=== PATIENT | male | born 1995 | race Two or more races ===

== ENCOUNTER 2020-08-25 00:13 | Emergency (ER) | payer OTHER ==
[~2020-08-25] VITALS: Ht 177.8 cm; Wt 200.0 kg
--- NOTE | 2020-08-25 00:22 | PHYS DOC ---
General Adult HPI: HPI: ".. My right nut been hurting me bad.. since about 1600.. " " I also louise hurt here in my rt lower abdomen...".. Not Patient is a 25 year old male prisoner who presents with above hx and complaints of right lower abdomen pain and right testicle pain. Patient states he has not had problems with his right testicle or lower abdomen previously. Denies any trauma. Has been on lockdown isolation since June. Patient denies any strain or previous history of hernia. No history of kidney stones with him or family members. No recent travel or specific ill contacts. Patient reportedly had a normal stool in the last 24 hours. Patient denies any history of STDs. Patient has had over 100 sexual partners in his lifetime. No history of STDs in the past. Review of Systems: Review of Systems: Constitutional: Denies fever or chills Eyes: Denies change in visual acuity HENT: Denies nasal congestion or sore throat Respiratory: Denies cough or shortness of breath Cardiovascular: Denies chest pain or edema GI: Complains of lower right abdominal pain. Denies, nausea, vomiting, bloody stools or diarrhea : Complains of right testicle pain Musculoskeletal: Denies back pain or joint pain Integument: Denies rash Neurologic: Denies headache, focal weakness or sensory changes Endocrine: Denies polyuria or polydipsia Lymphatic: Denies swollen glands Psychiatric: Denies depression or anxiety Family History: Family History: Noncontributory to presentation Current Medications: Current Meds: See nursing for home meds Allergies: Allergies: No known drug allergies Physical Exam: PE: Constitutional: Moderate acute distress, non-toxic appearance. [] HENT: Normocephalic, atraumatic, bilateral external ears normal, oropharynx moist, no oral exudates, nose normal. [] Eyes: PERRLA, EOMI, conjunctiva normal, no discharge. [] Neck: Normal range of motion, no tenderness, supple, no stridor. [] Cardiovascular:Heart rate regular rhythm, no murmur [] Lungs & Thorax: Bilateral breath sounds equal apex on auscultation [] few scattered wheezes. Abdomen: Bowel sounds normal, soft, right lower quadrant tenderness, no masses, no pulsatile masses. Right testicle tender to palpation. Circumcised male. No discharge. Does appear to have bilateral hydroceles. Epididymis area on right testicle is tender to palpation. Skin: Warm, dry, no erythema, no rash. Tattoos Back: No tenderness, no CVA tenderness. [] Extremities: No tenderness, no cyanosis, no clubbing, ROM intact, no edema. No psoas. Neurologic: Alert and oriented X 3, normal motor function, normal sensory function, no focal deficits noted. [] Psychologic: Affect anxious judgement normal, mood normal. [] EKG: EKG: [] Radiology/Procedures: Radiology/Procedures: [] IMAGING REPORT Signed PATIENT: DANNY PATEL ACCOUNT: [id number] : 1995 LOCATION: ER AGE: 25 SEX: M EXAM STATUS: REG ER ORD. PHYSICIAN: MARINA HAINES MD REASON: pain PROCEDURE: CT ABDOMEN PELVIS WO CONTRAST Exam: CT abdomen/pelvis without intravenous contrast Indication: Pain Comparison: None Technique: Helical CT imaging performed of the abdomen and pelvis without the u se of intravenous contrast. Sagittal and coronal reformats were obtained. One or more of the following individualized dose reduction techniques were utilized for this examination: 1. Automated exposure control 2. Adjustment of the mA and/or kV according to patient size 3. Use of iterative reconstruction technique. Findings: Inherently limited evaluation without intravenous contrast. Lower chest: Normal. Liver: Normal Gallbladder/Biliary Tree: Normal. Pancreas: Normal. Spleen: Normal. Adrenal Glands: Normal. Kidneys/Ureters/Bladder: Kidneys are normal in size. No urolithiasis or hydronephrosis. Ureters are normal. There is mild bladder wall thickening, likely related to underdistention. Reproductive Organs: Normal. Stomach, small bowel, and colon: The stomach and small bowel are normal. Appendix is normal. Colon is normal. Vasculature: Normal. Lymph Nodes: No lymphadenopathy. Peritoneum and retroperitoneum: No free fluid or free air. Bones: No acute abnormality. Miscellaneous: None Impression: No urolithiasis or other acute abnormality in the abdomen or pelvis. Electronically signed by: Marla Cardoso MD (08/25/2020 3:19 AM) [id number] DICTATED AND SIGNED BY: MARLA CARDOSO MD DATE: 08/25/20314 CC: MARINA HAINES MD; PCP,NO ~MTH0 0 Heart Score: Risk Factors: Risk Factors: DM, Current or recent (<one month) smoker, HTN, HLP, family history of CAD, obesity. Risk Scores: Score 0 - 3: 2.5% MACE over next 6 weeks - Discharge Home Score 4 - 6: 20.3% MACE over next 6 weeks - Admit for Clinical Observation Score 7 - 10: 72.7% MACE over next 6 weeks - Early Invasive Strategies Course & Med Decision Making: Course & Med Decision Making Pertinent Labs and Imaging studies reviewed. (See chart for details) Patient follow-up primary care. Patient take doxycycline 100 mg twice a day for the next 14 days. After completing course of doxycycline. Take Diflucan 100 mg daily for 3 days. Tylenol and ibuprofen for pain. Impression: 1. Rt. lower Abdomen Pain 2. Rt. Testicle pain 3. Hydrocele bilaterally 4. Epididymitis [] Dragon Disclaimer: Dragon Disclaimer: This electronic medical record was generated, in whole or in part, using a voice recognition dictation system. Departure Departure: Scripts Fluconazole (DIFLUCAN) 100 Mg Tablet 100 MG PO DAILY for post antibiotic for 3 Days, #3 TAB Prov: MARINA HAINES MD 08/25/20 Doxycycline Hyclate (DOXYCYCLINE HYCLATE) 100 Mg Tablet.dr 100 MG PO BID for infection for 14 Days, #28 TAB Prov: MARINA HAINES MD 08/25/20 Dragon Disclaimer This chart was dictated in whole or in part using Voice Recognition software in a busy, high-work load, and often noisy Emergency Department environment. It may contain unintended and wholly unrecognized errors or omissions. Dragon Disclaimer This chart was dictated in whole or in part using Voice Recognition software in a busy, high-work load, and often noisy Emergency Department environment. It may contain unintended and wholly unrecognized errors or omissions. MARINA HAINES MD Aug 25, 2020 00:22
[2020-08-25 00:26] VITALS: BP 135/78
[2020-08-25 01:18] LABS: CLARITY,URINE CLEAR; COLOR,URINE YELLOW
[2020-08-25 01:19] LABS: BACTERIA,URINE 0 /HPF (0-FEW); BILIRUBIN,URINE NEG (NEG); GLUCOSE,URINE NEG (NEG); NITRITE,URINE NEG (NEG); RBC,URINE 0 /HPF (0-2); UROBILINOGEN,URINE 0.2 mg/dL (0.2 mg/dL); WBC,URINE OCC /HPF (0-4)
[2020-08-25] MEDS ORDERED: KETOROLAC 30 MG/ML VIAL. IVP ONE (01:30)
[2020-08-25] MEDS ORDERED: IV RINGERS SOLUTION,LACTATED 1,000 ML IV SCH (01:30)
[2020-08-25] MEDS ORDERED: FAMOTIDINE 20 MG/2 ML VIAL IVP ONE (01:30)
[2020-08-25] MEDS ORDERED: ONDANSETRON PF 4 MG/2 ML VIAL. IVP ONE (01:30)
[2020-08-25 01:48] LABS: BASO # 0.1 x10^3/uL (0.0-0.2); BASO % 1 % (0-3); EOS # 0.3 x10^3/uL (0.0-0.7); EOS % 2 % (0-3); HEMATOCRIT 46.8 % (39.0-53.0); HEMOGLOBIN 16.3 g/dL (13.0-17.5); LYMPH # 3.9 x10^3/uL (1.0-4.8); LYMPH % 36 % (24-48); MEAN CORPUSCULAR HEMOGLOBIN 30 pg (25-35); MEAN CORPUSCULAR HGB CONC 35 g/dL (31-37); MEAN CORPUSCULAR VOLUME 86 fL (79-100); MONO # 1.1 x10^3/uL (0.0-1.1); MONO % 10 % (0-9); NEUT # 5.6 x10^3uL (1.8-7.7); NEUT % 51 % (31-73); PLATELET COUNT 211 x10^3/uL (140-400); RED BLOOD COUNT 5.46 x10^6/uL (4.30-5.70); RED CELL DISTRIBUTION WIDTH 16.6 % (11.5-14.5); WHITE BLOOD COUNT 10.9 x10^3/uL (4.0-11.0)
[2020-08-25 01:55] LABS: CALCIUM 8.9 mg/dL (8.5-10.1); CREATININE 1.1 mg/dL (0.7-1.3); GFR 80.3
[2020-08-25 02:03] LABS: ALBUMIN 4.1 g/dL (3.4-5.0); DIRECT BILIRUBIN 0.2 mg/dL (0.0-0.2); TOTAL BILIRUBIN 0.5 mg/dL (0.2-1.0); TOTAL PROTEIN 8.1 g/dL (6.4-8.2)
[2020-08-25] MEDS ORDERED: AZITHROMYCIN 500 MG VIAL. IV ONE (03:14)
[2020-08-25] MEDS ORDERED: IV NORMAL SALINE 250ML 250 ML ONE (03:14)
--- NOTE | 2020-08-25 03:22 | RAD ---
Exam: CT abdomen/pelvis without intravenous contrast Indication: Pain Comparison: None Technique: Helical CT imaging performed of the abdomen and pelvis without the use of intravenous cont rast. Sagittal and coronal reformats were obtained. One or more of the following individualized dose reduction techniques were utilized for this examinat ion: 1. Automated exposure control 2. Adjustment of the mA and/or kV according to patient size 3. Use of iterative reconstruction technique. Findings: Inherently limited evaluation without intravenous contrast. Lower chest: Normal. Liver: Normal Gallbladder/Biliary Tree: Normal. Pancreas: Normal. Spleen: Normal. Adrenal Glands: Normal. Kidneys/Ureters/Bladder: Kidneys are normal in size. No urolithiasis or hydronephrosis. Ureters are n ormal. There is mild bladder wall thickening, likely related to underdistention. Reproductive Organs: Normal. Stomach, small bowel, and colon: The stomach and small bowel are normal. Appendix is normal. Colon is normal. Vasculature: Normal. Lymph Nodes: No lymphadenopathy. Peritoneum and retroperitoneum: No free fluid or free air. Bones: No acute abnormality. Miscellaneous: None Impression: No urolithiasis or other acute abnormality in the abdomen or pelvis. Electronically signed by: Marla Cardoso MD (08/25/2020 3:19 AM) [id number]
[2020-08-25] MEDS ORDERED: AZITHROMYCIN 500 MG in IV NORMAL SALINE 250ML 250 ML IV ONE (03:30)
[2020-08-25] MEDS ORDERED: cefTRIAXone IM 1 GM VIAL IM ONE (03:30)
--- NOTE | 2020-08-25 04:05 | RAD ---
EXAMINATION: US TESTICULAR, 08/25/2020 2:25 AM CLINICAL INDICATION: Right testicular pain TECHNIQUE: Grayscale, color and spectral Doppler ultrasound images of the testicles. COMPARISON: None. FINDINGS: Right testicle measures 4.5 x 3.1 x 2.8 cm. The left testicle measures 4.3 x 3.0 x 2.3 cm. Normal blo od flow to both testicles. No testicular mass. The epididymides are normal in size with normal blood flow. There are small bilateral hydroceles. IMPRESSION: 1. No evidence of epididymitis-orchitis, or testicular torsion. 2. Small hydroceles. Electronically signed by: Marla Cardoso MD (08/25/2020 4:03 AM) [id number]
[2020-08-25] MEDS ORDERED: FLUC100T7 PO (04:12)
[2020-08-25] MEDS ORDERED: DOXY-96 PO (04:12)
--- NOTE | 2020-08-25 04:26 | RAD ---
EXAM: XR ABDOMEN COMP ACUTE 08/25/2020 1:11 AM CLINICAL INDICATION: Right lower abdominal pain radiating to right testicle COMPARISON: None TECHNIQUE: PA view the chest and AP supine and upright view of abdomen FINDINGS: Bowel gas pattern is nonspecific and nonobstructive. Normal volume of stool. No abnormal c alcifications. No acute osseous abnormality. The heart and lungs are normal. IMPRESSION: Normal abdominal series radiograph. Electronically signed by: Marla Cardoso MD (08/25/2020 4:24 AM) [id number]
== END 2020-08-25 04:30 | disposition home or self-care (01) ==
LOC: ER 00:13
DX: N43.3 Hydrocele, unspecified (principal); N45.1 Epididymitis; N50.811 Right testicular pain; R10.31 Right lower quadrant pain
CPT/HCPCS: 36415; 74022; 74176; 76870; 80048; 80076; 81001; 82150; 83690; 85025; 96361; 96365; 96368; 96372; 96375; 99285; J0456; J0696; J1885; J2405; J3490; J7050; J7120

== ENCOUNTER 2021-05-05 22:56 | Emergency (ER) | payer OTHER ==
[~2021-05-05] VITALS: Ht 170.2 cm; Wt 95.0 kg
[~2021-05-05 22:56] MED LIST: DOXY-96 PO; FLUC100T7 PO
--- NOTE | 2021-05-05 23:49 | PHYS DOC ---
Past History Additional Past Medical Histor: cluster headaches Past Surgical History: Tonsillectomy Alcohol Use: None Adult General Chief Complaint Chief Complaint: SHOULDER INJURY HPI HPI Patient is a 26-year-old male, who presents with right shoulder pain, 6 out of 10, dull and achy in nature after throwing a football too hard while playing football. Denies any traumas, illnesses, fevers, chest pain, shortness of breath or any other injuries. States he did not take any medications. Review of Systems Review of Systems Review of systems otherwise unremarkable except noted in HPI Allergies Allergies Allergies Coded Allergies Type Severity Reaction Last Updated Verified No Known Drug Allergies 08/25/20 No Physical Exam Physical Exam Constitutional: Well developed, well nourished, no acute distress, non-toxic appearance. [] HENT: Normocephalic, atraumatic, bilateral external ears normal, oropharynx moist, no oral exudates, nose normal. [] Cardiovascular:Heart rate regular rhythm, no murmur [] Lungs & Thorax: Bilateral breath sounds clear to auscultation [] Back: No tenderness, Extremities: Mild generalized right shoulder tenderness with no obvious bruising, edema, or deformities, neurovascular exam intact, no cyanosis, no cl ubbing, ROM intact, no edema. [] Neurologic: Alert and oriented X 3,no focal deficits noted. [] Psychologic: Affect normal, judgement normal, mood normal. [] EKG EKG [] Radiology/Procedures Radiology/Procedures [] Heart Score C/O Chest Pain: No Risk Factors: Risk Factors: DM, Current or recent (<one month) smoker, HTN, HLP, family history of CAD, obesity. Risk Scores: Risk Factors: DM, Current or recent (<one month) smoker, HTN, HLP, family hist ory of CAD, obesity. Course & Med Decision Making Course & Med Decision Making Patient is a 26-year-old male who presents with right shoulder pain Vital signs not concerning. Physical exam noted above. Given Tylenol, ibup rofen and ice. Imaging with no acute osseous abnormalities. Discussed all findings with patient. Advised on symptom control at home. Advised to follow-up with primary care physician. Gave return precautions to the ED. Patient grateful, verbalized understanding and agreed with plan of discharge. [] Dragon Disclaimer Dragon Disclaimer This electronic medical record was generated, in whole or in part, using a voice recognition dictation system. Departure Departure: Impression: Primary Impression: Shoulder pain Disposition: HOME / SELF CARE / HOMELESS Condition: GOOD Referrals: PCP,PLACIDO (PCP) SINA BELTRAN Patient Instructions: RICE - Routine Care for Injuries Additional Instructions: Thank you for coming into the emergency department tonight and allowing us to take care of you. Please read the attached information above carefully to go over things we discussed. Please continue on ice, Tylenol and ibuprofen regimen . Please follow-up with your doctor soon as possible to update on ED visit. Please come back to the ED with new or concerning symptoms as discussed. JAMSHID MIRAMONTES MD May 05, 2021 23:49
--- NOTE | 2021-05-06 00:03 | RAD ---
EXAM: 3 Views Right Shoulder DATE: 05/05/2021 11:50 PM INDICATION: Injury, SHOULDER PAIN COMPARISON: No Prior FINDINGS: There is no evidence for acute fracture or dislocation. AC joint is congruent. Humeral head is not hi gh riding. IMPRESSION: 1. No acute fracture or dislocation. Electronically signed by: Nic Prater MD (05/06/2021 12:01 AM) [facility]
[2021-05-06] MEDS ORDERED: IBUPROFEN 400 MG TABLET. PO ONE (00:30)
[2021-05-06] MEDS ORDERED: ACETAMINOPHEN 500 MG TABLET PO ONE (00:30)
[2021-05-06 00:35] VITALS: BP 140/82
== END 2021-05-06 00:40 | disposition home or self-care (01) ==
LOC: ER 22:56
DX: M25.511 Pain in right shoulder (principal)
CPT/HCPCS: 73030; 99283

== ENCOUNTER 2021-11-15 01:37 | Emergency (ER) | payer OTHER ==
[~2021-11-15] VITALS: Ht 170.2 cm; Wt 95.0 kg
[2021-11-15 01:45] VITALS: BP 153/104
[2021-11-15] MEDS ORDERED: IBUPROFEN 600 MG TABLET. PO ONE (02:00)
[2021-11-15] MEDS ORDERED: ACETAMINOPHEN 500 MG TABLET PO ONE (02:00)
--- NOTE | 2021-11-15 02:24 | PHYS DOC ---
Past History Additional Past Medical Histor: cluster headaches Past Surgical History: No Surgical History Alcohol Use: None Adult General Chief Complaint Chief Complaint: TESTICULAR PAIN OR INJURY HPI HPI Patient is a 26-year-old male who presents to the emergency department with right testicular pain for about a day. Denies any recent travels, traumas, illness, fevers, chest pain, shortness of breath, abdominal pain, dysuria, hematuria, blood in the stool or diarrhea. 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 States he does have a history of epididymitis in the past. Review of Systems Review of Systems Review of systems otherwise unremarkable except noted in HPI Current Medications Current Medications Current Medications Medications (Trade) Dose Ordered Sig/Claudia Start Time Stop Time Status Last Admin Dose Admin Acetaminophen (Tylenol) 1,000 mg 1X ONCE 11/15/21 02:00 11/15/21 02:02 DC 11/15/21 01:57 1,000 MG Ibuprofen (Motrin) 600 mg 1X ONCE 11/15/21 02:00 11/15/21 02:02 DC 11/15/21 01:57 600 MG Allergies Allergies Allergies Coded Allergies Type Severity Reaction Last Updated Verified No Known Drug Allergies 08/25/20 No Physical Exam Physical Exam Constitutional: Well developed, well nourished, no acute distress, non-toxic appearance. [] HENT: Normocephalic, atraumatic, Eyes: conjunctiva normal, no discharge. [] Neck: Normal range of motion, no tenderness, supple, no stridor. [] Cardiovascular:Heart rate regular rhythm, no murmur [] Lungs & Thorax: Bilateral breath sounds clear to auscultation [] Abdomen: Bowel sounds normal, soft, no tenderness, no masses, no pulsatile masses. [] Skin: Warm, dry, no erythema, no rash. [] Back: No tenderness, no CVA tenderness. [] Extremities: No tenderness, no cyanosis, no clubbing, ROM intact, no edema. [] Neurologic: Alert and oriented X 3, normal motor function, normal sensory function, no focal deficits noted. [] Psychologic: Affect normal, judgement normal, mood normal. [] EKG EKG [] Radiology/Procedures Radiology/Procedures [] Heart Score C/O Chest Pain: No Risk Factors: Risk Factors: DM, Current or recent (<one month) smoker, HTN, HLP, family hi story of CAD, obesity. Risk Scores: Risk Factors: DM, Current or recent (<one month) smoker, HTN, HLP, family history of CAD, obesity. Course & Med Decision Making Course & Med Decision Making Patient is a 26-year-old male who presents with testicular pain Vital signs not concerning outside of mild hypertension. Physical exam noted above. Given pain medicine. Denied need for nausea medicine Urinalysis not concerning. Ultrasound of testicles with bilateral hydroceles and normal blood flow. Discussed all findings with patient. Advised to follow-up with primary care physician as soon as he can update on ED visit. Advised on symptom control at home. Gave return precautions to the ED. Patient grateful, verbalized understanding and agreed with plan of discharge [] Dragon Disclaimer Dragon Disclaimer This electronic medical record was generated, in whole or in part, using a voice recognition dictation system. Departure Departure: Impression: Primary Impression: Bilateral hydrocele Disposition: HOME / SELF CARE / HOMELESS Condition: STABLE Referrals: PCP,NO (PCP) DEVANTE LAMB MD Patient Instructions: Hydrocele, Additional Instructions: Thank you for coming into the emergency department tonight and allowing us to take care of you. Your urinalysis was nonconcerning for infection. Your ultrasound showed bilateral hydroceles which are small fluid-filled sacs and can cause some discomfort. Please begin a Tylenol, ibuprofen and Benadryl regimen at home you can also use ice. Please follow-up with your primary care physician as soon as you can to discuss your ED visit and set up a follow-up appointment. Please come back with new or concerning symptoms as discussed. JAMSHID MIRAMONTES MD Nov 15, 2021 02:24
[2021-11-15 03:07] LABS: BACTERIA,URINE 0 /HPF (0-FEW); CLARITY,URINE CLEAR; COLOR,URINE YELLOW; GLUCOSE,URINE NEG (NEG); NITRITE,URINE NEG (NEG); RBC,URINE 0 /HPF (0-2); SQUAMOUS EPITHELIAL CELL,UR OCC /LPF; UROBILINOGEN,URINE 0.2 mg/dL (0.2 mg/dL); WBC,URINE 0 /HPF (0-4)
--- NOTE | 2021-11-15 03:42 | RAD ---
CLINICAL HISTORY: Reason: RIGHT TESTICLE PAIN / Spl. Instructions: / History: COMPARISON: None available. TECHNIQUE: Ultrasound images of the scrotum was performed with cabello-scale and color doppler. FINDINGS: The right testis measures 4.6 x 2.6 x 3.2 cm. The left testis measures 4.6 x 2.2 x 3.1 cm. There is no intratesticular abnormality. Testicular vascularity is symmetric and within normal limit s. The epididymis is normal in appearance bilaterally. Trace hydrocele bilaterally. No varicocele. IMPRESSION: No evidence for testicular torsion. Trace hydroceles bilaterally. Electronically signed by: Nic Prater MD (11/15/2021 3:39 AM) [facility]
== END 2021-11-15 03:50 | disposition home or self-care (01) ==
LOC: EEVIPCON 01:37 → ER 01:37
DX: N43.3 Hydrocele, unspecified (principal)
CPT/HCPCS: 76870; 81001; 99284

== ENCOUNTER 2022-01-03 16:24 | Emergency (ER) | payer OTHER ==
[~2022-01-03] VITALS: Ht 188 cm; Wt 100.0 kg
[2022-01-03 16:55] VITALS: BP 131/70
--- NOTE | 2022-01-03 17:41 | PHYS DOC ---
Past History Additional Past Medical Histor: cluster headaches Past Surgical History: No Surgical History Additional Past Surgical Histo: DENTAL Alcohol Use: None General Adult EDM: Chief Complaint: HAND PROBLEM HPI: HPI: Patient is a 26-year-old male who presents to the emergency department for hand injury. Patient is a prisoner at the long term and was reported that he was punching a wall although patient will not report how he injured his hand. Laisha dumont is denying any current pain. He denies any decreased sensation or decreased range of motion to his hand. Patient does have an abrasion to his forehead. I asked patient if he was on any blood thinners and he denied. He reports a headache but denies any head injury. Review of Systems: Review of Systems: HENT: See HPI Musculoskeletal: See HPI Integument: See HPI Neurologic: See HPI Allergies: Allergies: Allergies Coded Allergies Type Severity Reaction Last Updated Verified No Known Drug Allergies 08/25/20 No Physical Exam: PE: Constitutional: Well developed, well nourished, no acute distress, non-toxic appearance. [] HENT: Normocephalic, small 1 cm abrasion noted to patient's forehead, no palpable skull fracture, bilateral external ears normal, oropharynx moist, no oral exudates, nose normal. [] Eyes: PERRL, EOMI, conjunctiva normal, no discharge. [] Neck: Normal range of motion, no stridor Cardiovascular: Normal peripheral perfusion Lungs & Thorax: Normal work of breathing, no tachypnea Abdomen: Soft and flat Skin: Warm, dry, no erythema, no rash. [] Back: No tenderness, normal range of motion Extremities: No tenderness, no cyanosis, no clubbing, ROM intact, no edema. [] Right hand: Abrasion noted to right fourth finger proximal to MCP joint, swelling noted to dorsal aspect of hand, range of motion intact, neuro intact, no obvious deformity, no crepitus Neurologic: Alert and oriented X 3, normal motor function, normal sensory functi on, no focal deficits noted. [] Psychologic: Affect normal, judgement normal, mood normal. [] EKG: EKG: [] Radiology/Procedures: Radiology/Procedures: []REASON: hand injury PROCEDURE: HAND RIGHT 3V Right HAND, VIEWS 3 Indication: Reason: hand injury /pain. Findings: There is no acute fracture or dislocation. Bony articulations are normal. There is no bony erosion. There is old healed fracture with dorsal vertex angulation of the mid fourth metacarpal. Mineralization is normal. There is minimal dorsal soft tissue swelling overlying the metacarpal heads. There is no radiopaque foreign body. IMPRESSION: No acute fracture or dislocation. Electronically signed by: Donny Wilson MD (01/03/2022 6:05 PM) [facility] DICTATED AND SIGNED BY: DONNY WILSON MD DATE: 01/03/221802 CC: HUGO BOCANEGRA APRN; PCP,NO ~ Heart Score: C/O Chest Pain: N/A Risk Factors: Risk Factors: DM, Current or recent (<one month) smoker, HTN, HLP, family history of CAD, obesity. Risk Scores: Score 0 - 3: 2.5% MACE over next 6 weeks - Discharge Home Score 4 - 6: 20.3% MACE over next 6 weeks - Admit for Clinical Observation Score 7 - 10: 72.7% MACE over next 6 weeks - Early Invasive Strategies Course & Med Decision Making: Course & Med Decision Making Pertinent Labs and Imaging studies reviewed. (See chart for details) [] Patient presents to the emergency department for right hand swelling and injury. X-ray was performed that showed no acute fracture. Patient's hand was placed in Marcos wrap. Patient educated on rice protocol. He is neurovascularly intact. Advised to take Tylenol and ibuprofen at home for pain. I discussed with patient all findings and diagnostic testing as well as the need to follow- up with PCP for further evaluation and treatment or return to the ER if any new or worsening symptoms. Strict return precautions were also discussed at length. Patient voiced understanding and agreement with the plan. Patient is hemodynamically stable at the time of disposition. Dragon Disclaimer: Dragon Disclaimer: This electronic medical record was generated, in whole or in part, using a voice recognition dictation system. Departure Departure: Impression: Primary Impression: Hand contusion Qualified Codes: S60.221A - Contusion of right hand, initial encounter Disposition: HOME / SELF CARE / HOMELESS Condition: GOOD Referrals: PCP,NO (PCP) Patient Instructions: Hand Contusion Additional Instructions: You are seen in the emergency department today for hand injury. Imaging was performed that did not show any acute fracture. At this will likely improve over time. Your symptoms may be improved by something called the rice protocol. This is rest, ice, compression, elevation. Please follow-up when doing intense exercises that may make the pain worse. Sometimes gentle stretching can provide relief, but be careful to injury. It is important to perform gentle range of motion exercises to prevent stiff joints and chronic pain. Use ice packs over the affected areas to help decrease your pain. For the first 24 hours you can apply ice 20 minutes on 20 minutes off for 4 times per day. Sometimes compression such as the use of an Marcos wrap can help with the swelling. You may also elevate the affected area to help with the swelling. You take Tylenol and/ibuprofen at home for pain. Follow-up with your primary care provider within 3 days. Return to the emergency department if you develop worsening pain, decreased sensation in your extremity or decreased range of motion, confusion/poor coordination, intractable nausea or vomiting. HUGO BOCANEGRA [employer] January 03, 2022 17:41
--- NOTE | 2022-01-03 18:07 | RAD ---
Right HAND, VIEWS 3 Indication: Reason: hand injury /pain. Findings: There is no acute fracture or dislocation. Bony articulations are normal. There is no bony erosion. T here is old healed fracture with dorsal vertex angulation of the mid fourth metacarpal. Mineralization is normal. There is minimal dorsal soft tissue swelling overlying the metacarpal head s. There is no radiopaque foreign body. IMPRESSION: No acute fracture or dislocation. Electronically signed by: Donny Holt MD (01/03/2022 6:05 PM) [facility]
== END 2022-01-03 18:48 | disposition home or self-care (01) ==
LOC: ER 16:24
DX: S60.221A Contusion of right hand, initial encounter (principal); S60.414A Abrasion of right ring finger, initial encounter; S00.81XA Abrasion of other part of head, initial encounter; W22.01XA Walked into wall, initial encounter; Y93.89 Activity, other specified; Y92.89 Other specified places as the place of occurrence of the external cause; Y99.8 Other external cause status
CPT/HCPCS: 73130; 99283